=== PATIENT | male | born 1990 | race Caucasian/White ===

== ENCOUNTER 2023-12-06 06:41 | Inpatient (IN) | payer OTHER ==
[2023-11-30 13:27] VITALS: BMI 32.1
[2023-12-06] MEDS ORDERED: LIDOCAINE HCL/PF 2% SDV 5ML VIAL ONE (07:32)
[2023-12-06] MEDS ORDERED: MIDAZOLAM HCL 2 MG/2 ML SINGLE DOSE VIAL ONE (07:32)
[2023-12-06] MEDS ORDERED: PROPOFOL 40 ML ONE (07:32)
[2023-12-06] MEDS ORDERED: SUCCINYLCHOLINE CHLORIDE 200 MG/10 ML SYRINGE ONE (07:43)
[2023-12-06] MEDS ORDERED: ACETAMINOPHEN INJECTION 100 ML IVPB ONE (07:59)
[2023-12-06] MEDS ORDERED: FAMOTIDINE 20 MG/50 ML IVPB 20 MG/50 ML MG IVPB ONE (07:59)
[2023-12-06] MEDS ORDERED: LIDOCAINE HCL 2% (20ML MULTI-DOSE VIAL) ONE (08:04)
[2023-12-06] MEDS ORDERED: PROPOFOL 60 ML ONE (08:05)
[2023-12-06] MEDS ORDERED: BACITRACIN ZINC 15 GM TUBE TOPICAL OINTMENT ONE (09:06)
[2023-12-06] MEDS ORDERED: oxyCODONE HCL 5 MG TABLET PO PRN ×3 (09:27→09:37)
[2023-12-06] MEDS ORDERED: ONDANSETRON 4 MG/2 ML VIAL IVPUSH PRN (09:27)
[2023-12-06] MEDS ORDERED: LACTATED RINGERS SOLUTION 1,000 ML IV SCH ×2 (09:30→09:45)
[2023-12-06] MEDS ORDERED: ONDANSETRON 4 MG/2 ML VIAL IVPB PRN (09:37)
[2023-12-06 10:26] VITALS: PULSE 71; RESP 18; TEMP 97.8
[2023-12-06 10:44] VITALS: BP 110/56
== END 2023-12-06 10:44 | disposition home or self-care (01) | DRG 481 ==
LOC: FASU 06:41 → FM/S 09:37
PROVIDERS: ADMIT Plastic Surgery; ATTEND Plastic Surgery
PROC: 0HXAXZZ Transfer Inguinal Skin, External Approach (ICD-10-PCS; 2023-12-06)
PROC: 0VBS0ZZ Excision of Penis, Open Approach (ICD-10-PCS; principal; 2023-12-06 08:45)
DX: D07.4 Carcinoma in situ of penis (principal)
CPT/HCPCS: 88305-TC; 88341-TC; 94760; J0131